=== PATIENT | male | born 1960 | race Caucasian/White ===

== ENCOUNTER 2017-02-08 07:03 | Day surgery (SDC) | payer OTHER ==
[2017-02-03 16:54] VITALS: BMI 28.1
[~2017-02-08 07:03] MED LIST: LACTATED RINGERS 1,000 ML IV SCH; LIDOCAINE 1% 20 ML VIAL (10MG/ML) FOR IV START INTRADERMA PRN
[2017-02-08 07:12] VITALS: RESP 18; TEMP 97
[2017-02-08] MEDS ORDERED: LACTATED RINGERS 1,000 ML IV ONE (07:15)
[2017-02-08] MEDS ORDERED: PROPOFOL 10 MG/ML 20 ML VIAL IV ONE (07:32)
--- NOTE | 2017-02-08 08:06 | P.PCN ---
Date of Procedure: 02/08/17 Preoperative Diagnosis: Abdominal pain Postoperative Diagnosis: Few scattered diverticuli, internal hemorrhoids Procedure(s) Performed: Colonoscopy Anesthesia: MAC Surgeon: Yi Gonzalez Estimated Blood Loss (ml): 0 IV fluids (ml): 200 Pathology: none sent Condition: stable Disposition: PACU Indications for Procedure: Abdominal pain, questionable attack of diverticulitis approximately 6 weeks ago Operative Findings: Scattered diverticuli, internal hemorrhoids Description of Procedure: Patient was taken to the endoscopy suite and following sedation rectal exam was performed. Patient was noted to have good sphincter tone no masses. Colonoscope was passed through the anus into the rectum. Was passed up to the sigmoid colon up to the splenic flexure. Was passed through the transverse colon hepatic flexure right colon down to the area of the cecum. Proximally 6 minutes were taken to withdraw the scope from the area of the cecum. Circumferential observation mucosa did not reveal any lesions of concern in the cecum or right colon. No lesions of concern identified in the transverse colon. In the left colon no lesions of concern identified. In the sigmoid colon few scattered diverticuli. Scope was brought down to the rectum where it was retroflexed and internal hemorrhoids were identified. Impression/plan: 1. Internal hemorrhoids 2. Scattered diverticuli Plan conservative management 2. Repeat scope 7-10 years
--- NOTE | 2017-02-08 08:07 | P.DS ---
Providers Attending physician: Yi Gonzalez Primary care physician: Maximo Martino Plan - Discharge Summary New Discharge Prescriptions: No Action Docusate [Colace] 100 mg PO DAILY Atenolol [Tenormin] 25 mg PO BID Synthroid(Unknown Dose) 1 tab PO DAILY Discharge Medication List Atenolol [Tenormin] 25 mg PO BID 02/03/17 [History] Docusate [Colace] 100 mg PO DAILY 02/03/17 [History] Synthroid(Unknown Dose) 1 tab PO DAILY 02/03/17 [History] Activity/Diet/Wound Care/Special Instructions: Diverticular diet Discharge Disposition: HOME SELF-CARE
[2017-02-08 08:34] VITALS: BP 141/81; PULSE 56
== END 2017-02-08 08:44 | disposition home or self-care (01) ==
LOC: ORWHC2ENDO 07:03
PROVIDERS: ATTEND Surgery
DX: K57.30 Diverticulosis of large intestine without perforation or abscess without bleeding (principal); K64.8 Other hemorrhoids; I10 Essential (primary) hypertension; E03.9 Hypothyroidism, unspecified; F17.210 Nicotine dependence, cigarettes, uncomplicated; Z79.899 Other long term (current) drug therapy; Z88.2 Allergy status to sulfonamides
CPT/HCPCS: 45378; J2704